=== PATIENT | female | born 1940 | race Caucasian/White ===

== ENCOUNTER 2020-11-02 17:17 | Inpatient (IN) | payer MEDICARE, OTHER ==
[~2020-11-02] VITALS: Ht 165.1 cm; Wt 59.9 kg
[2020-11-02] MEDS ORDERED: VANCOMYCIN IV 1,000 MG in IV DEXTROSE 5% 250 ML IV ONE (18:15)
[2020-11-02] MEDS ORDERED: IV NORMAL SALINE 1000 ML BAG IV ONE (18:15)
[2020-11-02] MEDS ORDERED: CEFTRIAXONE 1 G in IV DEXTROSE 5% 50 ML IV ONE (18:15)
[2020-11-02] MEDS ORDERED: ATOR20TA PO (18:24)
[2020-11-02] MEDS ORDERED: CEPH500C2 PO (18:24)
[2020-11-02] MEDS ORDERED: FOLI1TAB27 PO (18:24)
[2020-11-02] MEDS ORDERED: CALC-953 PO (18:24)
[2020-11-02] MEDS ORDERED: SULF1TAB48 PO (18:24)
[2020-11-02] MEDS ORDERED: CARV3.122 PO (18:24)
[2020-11-02] MEDS ORDERED: MULT-594 PO (18:24)
[2020-11-02] MEDS ORDERED: ACID1TAB12 PO (18:24)
[2020-11-02] MEDS ORDERED: ZINC57OI3 TP (18:24)
[2020-11-02] MEDS ORDERED: IBUP-1627 PO (18:24)
[2020-11-02 18:39] LABS: HEMATOCRIT 32.6 % (31.2-41.9); MEAN CORPUSCULAR HEMOGLOBIN 28.9 uug (24.7-32.8); MEAN CORPUSCULAR VOLUME 87.7 fL (75.5-95.3); PLATELET COUNT (AUTO) 369 K/uL (179-408)
[2020-11-02 18:45] LABS: CARBON DIOXIDE 30 mmol/L (21-32); CHLORIDE 103 mmol/L (98-107); CREATININE 0.8 mg/dL (0.6-1.3); GLUCOSE 110 mg/dL (74-106); POTASSIUM 4.3 mmol/L (3.5-5.1); UREA NITROGEN, BLOOD 35 mg/dL (7-18)
[2020-11-02 18:58] LABS: ALANINE AMINOTRANSFERASE 28 U/L (14-59); ALKALINE PHOSPHATASE 154 U/L (50-136); ASPARTATE AMINOTRANSFERASE 27 U/L (15-37); BILIRUBIN,DIRECT < 0.1 mg/dL (0.0-0.2); BILIRUBIN,TOTAL 0.1 mg/dL (0.2-1.0); TOTAL PROTEIN, SERUM 7.1 g/dL (6.4-8.2)
[2020-11-02] MEDS ORDERED: VANCOMYCIN IV 200 ML ONE (19:15)
[2020-11-02] MEDS ORDERED: CEFTRIAXONE /D5W 50ML IVPB **ER PYXIS IV ONE (19:16)
--- NOTE | 2020-11-02 19:23 | NUR ---
XRAY AT BEDSIDE.
[2020-11-02] MEDS ORDERED: LORAZEPAM 2 MG/1 ML VIAL IV ONE ×2 (19:30→21:30)
[2020-11-02] MEDS ORDERED: LORAZEPAM 2 MG/1 ML VIAL ONE ×2 (19:42→21:32)
--- NOTE | 2020-11-02 19:55 | NUR ---
PT BEING TAKEN DOWN FOR CT.
--- NOTE | 2020-11-02 20:10 | NUR ---
PT RETURNED FROM CT, STABLE CONDITION.
--- NOTE | 2020-11-02 20:42 | NUR ---
Called [facility] to page Ebenezer REEDER.
[2020-11-02] MEDS ORDERED: diphenhydrAMINE 50 MG/1 ML VIAL IV ONE (20:45)
--- NOTE | 2020-11-02 20:46 | NUR ---
Dr. Patton on panel call with Ebenezer REEDER.
[2020-11-02] MEDS ORDERED: diphenhydrAMINE 50 MG/1 ML VIAL ONE (20:56)
[2020-11-02] MEDS ORDERED: HYDROCODONE/APAP 5-325MG TABLET PO PRN (21:00)
[2020-11-02] MEDS ORDERED: MAGNESIUM HYDROXIDE 30 ML LIQUID UDC PO PRN (21:00)
[2020-11-02] MEDS ORDERED: ONDANSETRON 4 MG/2 ML VIAL IV PRN (21:00)
[2020-11-02] MEDS ORDERED: hydrALAZINE HCL 20 MG/1 ML VIAL IV PRN (21:00)
[2020-11-02] MEDS ORDERED: LORAZEPAM 2 MG/1 ML VIAL IV PRN (21:00)
[2020-11-02] MEDS ORDERED: MORPHINE SULFATE 2 MG/1 ML DISP.SYRIN IV PRN (21:00)
[2020-11-02] MEDS ORDERED: LABETALOL HCL 100 MG/20 ML VIAL IV PRN (21:00)
[2020-11-02] MEDS: ATORVASTATIN 20 MG TABLET PO SCH (21:50)
--- NOTE | 2020-11-02 21:55 | NUR ---
LIPITOR 40 MG TAKEN FROM [facility]XIS AND HALF ADMINISTERED TO PT FOR ORDER OF LIPITOR 20 MG. ADMINISTERED LIPITOR 20 MG PO, NO ASE NOTED.
[2020-11-02] MEDS ORDERED: ATORVASTATIN 40 MG TABLET ONE (21:59)
[2020-11-02] MEDS ORDERED: CEFEPIME HCL 1 G in IV DEXTROSE 5% 50 ML IV SCH (22:00)
--- NOTE | 2020-11-02 23:20 | NUR ---
Patient is resting comfortably in bed with eyes closed. Breathing is even and unnlabored. VSS.
[2020-11-03] MEDS ORDERED: LORAZEPAM 2 MG/1 ML VIAL IV ONE (00:30)
[2020-11-03] MEDS ORDERED: LORAZEPAM 2 MG/1 ML VIAL ONE (00:42)
--- NOTE | 2020-11-03 02:50 | NUR ---
Changed pt, now noted to be clean and dry. Turned and repositioned. Denies any pain/discomfort. VSS. Bed in lowesat position, resting comfortbly.
--- NOTE | 2020-11-03 04:26 | NUR ---
Pt noted to be in bed, resting, breathing even and unlabored, eyes closed. VSS. Bed in lowest position for safety precautions.
[2020-11-03 05:44] LABS: HEMATOCRIT 29.9 % (31.2-41.9); MEAN CORPUSCULAR HEMOGLOBIN 29.3 uug (24.7-32.8); MEAN CORPUSCULAR VOLUME 88.3 fL (75.5-95.3); PLATELET COUNT (AUTO) 290 K/uL (179-408)
[2020-11-03 05:55] LABS: BILIRUBIN,TOTAL 0.1 mg/dL (0.2-1.0); CREATININE 0.7 mg/dL (0.6-1.3); PHOSPHOROUS 2.7 mg/dL (2.5-4.9); POTASSIUM 3.7 mmol/L (3.5-5.1)
--- NOTE | 2020-11-03 06:39 | NUR ---
Patient is sleeping comfortably in bed. VSS. Breathing even and unlabored.
--- NOTE | 2020-11-03 08:00 | NUR ---
Assissted pt with break fast. pt had oatmeal/banana, eggs and juice.
[2020-11-03] MEDS: CEFEPIME HCL 1 G in IV DEXTROSE 5% 50 ML IV SCH ×2 (08:05→16:05)
[2020-11-03] MEDS ORDERED: CEFEPIME HCL 1 G VIAL ONE (08:06)
[2020-11-03] MEDS: CARVEDILOL 3.125 MG TABLET PO SCH ×2 (09:10→16:37)
[2020-11-03] MEDS ORDERED: CARVEDILOL 3.125 MG TABLET ONE (09:40)
[2020-11-03] MEDS ORDERED: TOBRAMYCIN 0.3% OPHT DROP 5 ML BOTTLE ONE (10:16)
--- NOTE | 2020-11-03 10:16 | NUR ---
Dr. Sol at bedside. Dr. Sol said that Dr. Andres will see the pt tomorrow for infection consult.
[2020-11-03] MEDS: TOBRAMYCIN/DEXAMETH OPHT DROP 2.5 ML BOTTLE EACHEYE SCH ×2 (10:40→12:30)
[2020-11-03] MEDS ORDERED: VENL75CA62 PO (11:49)
[2020-11-03] MEDS ORDERED: MOXI3DRO EACHEYE (11:49)
[2020-11-03] MEDS ORDERED: MUPI22OI2 TOP (11:49)
[2020-11-03] MEDS ORDERED: MULT-594 PO (11:49)
[2020-11-03] MEDS ORDERED: MIRT-93 PO (11:49)
[2020-11-03] MEDS ORDERED: PHEN100C4 PO (11:49)
[2020-11-03] MEDS ORDERED: METF-441 PO (11:49)
[2020-11-03] MEDS ORDERED: LOPE-195 PO (11:49)
[2020-11-03] MEDS ORDERED: RIVA10TA PO (11:49)
[2020-11-03] MEDS ORDERED: ACID1TAB12 PO (11:49)
[2020-11-03] MEDS ORDERED: SPIR25TA6 PO (11:49)
[2020-11-03] MEDS ORDERED: LEVO50TA8 PO (11:49)
[2020-11-03] MEDS ORDERED: NUT.237L30 PO (11:49)
--- NOTE | 2020-11-03 11:57 | NUR ---
pt daughter brought a comprehensive list of the pt home meds, added the new meds and talked to review the updated med recon.
[2020-11-03] MEDS ORDERED: DEXTROSE 50% 50 ML DISP.SYRIN IV PRN (12:15)
--- NOTE | 2020-11-03 12:19 | NUR ---
perineal hygiene provided. daughter at bedside to help with lunch
--- NOTE | 2020-11-03 12:25 | NUR ---
he=[id number]
[2020-11-03] MEDS: BLOOD SUGAR DIAGNOSTIC 1 EACH STRIP VI SCH ×2 (12:28→20:49)
--- NOTE | 2020-11-03 12:30 | NUR ---
pt daughter at bedside helping with feeding the pt, lunch tray. Addendum: 11/03/20 at 1336 by GUILHERME pt's daughter placed the upper denture for pt.
[2020-11-03] MEDS: MUPIROCIN 2% OINT 22 GM TUBE TP SCH ×2 (13:37→16:38)
[2020-11-03] MEDS ORDERED: MUPIROCIN 2% OINT 22 GM TUBE ONE (14:45)
--- NOTE | 2020-11-03 15:36 | NUR ---
transfered the pt to floor in stable condition. ptreamined calm and comfortable the whole er stay.
[2020-11-03 16:30] VITALS: BP 147/46
[2020-11-03 16:55] VITALS: BP 142/31
[2020-11-03] MEDS ORDERED: VITAMIN D3 PO SCH (17:00)
[2020-11-03] MEDS ORDERED: [UNRECOGNIZED DRUG - OTHER] PO SCH (17:00)
[2020-11-03] MEDS ORDERED: CALCIUM CARBONATE PO SCH (17:00)
[2020-11-03] MEDS: TOBRAMYCIN 0.3% OPHT DROP 5 ML BOTTLE EACHEYE SCH (17:48)
[2020-11-03] MEDS: ACIDOPHILUS/BULGARICUS CHEW TAB PO SCH (17:51)
[2020-11-03] MEDS: FOLIC ACID 1 MG TABLET PO SCH (17:51)
[2020-11-03] MEDS: RIVAROXABAN 10 MG TABLET PO SCH (17:52)
[2020-11-03] MEDS ORDERED: Medication Not On Formulary EA (Acidophilus/Bulgaricus (Floranex Tablet) 1 EACH) PO SCH (18:00)
--- NOTE | 2020-11-03 19:30 | NUR ---
RECEIVED PT AWAKE, ALERT AND ORIENTEDX3. PT IN NO ACUTE DISTRESS. IV INTACT. SAFETY AND COMFORT PROVIDED. WILL CONTINUE TO MONITOR.
[2020-11-03 20:40] VITALS: BP 136/67
[2020-11-03] MEDS: ACETAMINOPHEN 325 MG TABLET PO PRN (20:44)
[2020-11-03] MEDS: MIRTAZAPINE 15 MG TABLET PO SCH (20:44)
[2020-11-03] MEDS: PHENYTOIN SODIUM EXTENDED 100 MG CAPSULE.SA PO SCH (20:44)
[2020-11-03] MEDS: ATORVASTATIN 20 MG TABLET PO SCH (20:44)
[2020-11-03] MEDS: VANCOMYCIN IV 1,000 MG in IV DEXTROSE 5% 250 ML IV SCH (21:09)
[2020-11-04] MEDS: CEFEPIME HCL 1 G in IV DEXTROSE 5% 50 ML IV SCH ×4 (00:08→23:31)
[2020-11-04] MEDS: TOBRAMYCIN 0.3% OPHT DROP 5 ML BOTTLE EACHEYE SCH ×5 (00:08→23:37)
--- NOTE | 2020-11-04 01:00 | NUR ---
DAUGHTER OF THE PT CALLED TO TAKE OFF THE COMPRESSION SOCKS OF HER MOTHER AND SHE WANTS TO BE NOTIFY IF THE ID DOCTOR WILL COME AND SHE CAN TALK WITH THE DOCTOR. TOLD THE DAUGHTER WE WILL ENDORSE IT TO DAYSHIFT.
[2020-11-04 04:40] VITALS: BP 141/50
[2020-11-04] MEDS: LEVOTHYROXINE SODIUM 50 MCG TABLET PO SCH (06:05)
--- NOTE | 2020-11-04 06:20 | NUR ---
PT SLEPT INTERMITTENTLY. PT IN NO ACUTE DISTRESS. PRESCRIBED MEDICATION GIVEN AND PT TOLERATED IT WELL. IV INTACT. PT BLOOD SUGAR WAS 125 AND 99 . TYLENOL 650MG PRN GIVEN AT 2044H. SAFETY AND COMFORT PROVIDED. ALL NEEDS ARE MET. WILL ENDORSE TO INCOMING NURSE FOR CONTINUITY OF CARE.
[2020-11-04] MEDS: BLOOD SUGAR DIAGNOSTIC 1 EACH STRIP VI SCH ×4 (06:33→20:20)
--- NOTE | 2020-11-04 07:00 | NUR ---
Relay the message of the daughter to incoming nurse that she wants to talk to the primary doctor and infectious disease doctor regarding her mom.
[2020-11-04] MEDS: MULTIVITAMINS,THERAPEUTIC TABLET PO SCH (08:00)
[2020-11-04] MEDS: SPIRONOLACTONE 25 MG TABLET PO SCH (08:00)
[2020-11-04] MEDS: CALCIUM CARB/VITAMIN D 500MG-200UNITS TABLET PO SCH (08:00)
[2020-11-04] MEDS: CARVEDILOL 3.125 MG TABLET PO SCH ×2 (08:00→16:48)
[2020-11-04] MEDS: VENLAFAXINE XR 75 MG TAB.ER.24H PO SCH (08:00)
[2020-11-04] MEDS: MUPIROCIN 2% OINT 22 GM TUBE TP SCH ×3 (08:01→17:00)
[2020-11-04] MEDS ORDERED: Medication Not On Formulary EA (Multivitamins (Multivitamin) 1 EACH) PO SCH (09:00)
[2020-11-04 11:18] VITALS: BP 136/54
[2020-11-04 15:07] VITALS: BP 120/57
[2020-11-04] MEDS: FOLIC ACID 1 MG TABLET PO SCH (17:32)
[2020-11-04] MEDS: ACIDOPHILUS/BULGARICUS CHEW TAB PO SCH (17:32)
[2020-11-04] MEDS: RIVAROXABAN 10 MG TABLET PO SCH (17:49)
[2020-11-04] MEDS: ATORVASTATIN 20 MG TABLET PO SCH (20:11)
[2020-11-04] MEDS: MIRTAZAPINE 15 MG TABLET PO SCH (20:11)
[2020-11-04] MEDS: PHENYTOIN SODIUM EXTENDED 100 MG CAPSULE.SA PO SCH (20:11)
[2020-11-04 20:18] VITALS: BP 132/48
[2020-11-04] MEDS: INSULIN REGULAR, HUMAN 300 UNIT/3 ML VIAL SQ PRN (20:35)
[2020-11-04] MEDS: ACETAMINOPHEN 325 MG TABLET PO PRN (20:35)
[2020-11-04] MEDS: VANCOMYCIN IV 1,000 MG in IV DEXTROSE 5% 250 ML IV SCH (23:35)
[2020-11-05 04:21] VITALS: BP 103/43
[2020-11-05] MEDS: TOBRAMYCIN 0.3% OPHT DROP 5 ML BOTTLE EACHEYE SCH ×4 (05:25→23:50)
[2020-11-05] MEDS: LEVOTHYROXINE SODIUM 50 MCG TABLET PO SCH (06:31)
[2020-11-05] MEDS: BLOOD SUGAR DIAGNOSTIC 1 EACH STRIP VI SCH ×4 (06:31→20:43)
[2020-11-05 06:34] LABS: HEMATOCRIT 29.2 % (31.2-41.9); MEAN CORPUSCULAR HEMOGLOBIN 28.7 uug (24.7-32.8); MEAN CORPUSCULAR VOLUME 87.5 fL (75.5-95.3); PLATELET COUNT (AUTO) 281 K/uL (179-408)
[2020-11-05 06:57] LABS: CREATININE 0.6 mg/dL (0.6-1.3); PHOSPHOROUS 3.4 mg/dL (2.5-4.9); POTASSIUM 3.7 mmol/L (3.5-5.1)
--- NOTE | 2020-11-05 07:30 | NUR ---
Awake, alert, oriented x 3, on moderate high back rest. [place] orbital area with redness. Denies pain
[2020-11-05] MEDS: MULTIVITAMINS,THERAPEUTIC TABLET PO SCH (09:30)
[2020-11-05] MEDS: CALCIUM CARB/VITAMIN D 500MG-200UNITS TABLET PO SCH (09:30)
[2020-11-05] MEDS: CEFEPIME HCL 1 G in IV DEXTROSE 5% 50 ML IV SCH ×3 (09:30→23:50)
[2020-11-05] MEDS: VENLAFAXINE XR 75 MG TAB.ER.24H PO SCH (09:30)
[2020-11-05] MEDS: SPIRONOLACTONE 25 MG TABLET PO SCH (09:30)
[2020-11-05] MEDS: CARVEDILOL 3.125 MG TABLET PO SCH ×2 (09:37→17:32)
[2020-11-05] MEDS: MUPIROCIN 2% OINT 22 GM TUBE TP SCH ×3 (09:38→17:33)
[2020-11-05 11:53] VITALS: BP 142/48
[2020-11-05] MEDS: INSULIN REGULAR, HUMAN 300 UNIT/3 ML VIAL SQ PRN ×2 (12:58→20:46)
--- NOTE | 2020-11-05 13:25 | NUR ---
Right arm wound, seen and examined by PARRISH Merritt. Wound care done as ordered, dressing clean and dry
--- NOTE | 2020-11-05 14:06 | NUR ---
WOUND CARE CONSULT: PT SEEN FOR RT ARM CLOSED SKIN TEAR WITH SLIGHT REDNESS TO PERIWOUND AREA, PRESENT ON ADMISSION. CONCUR WITH CURRENT WOUND TREATMENT. ORDERS CLARIFIED WITH NURSING STAFF. MD IN AGREEMENT WITH PLAN OF CARE.
[2020-11-05 15:59] VITALS: BP 129/63
[2020-11-05] MEDS: FOLIC ACID 1 MG TABLET PO SCH (17:33)
[2020-11-05] MEDS: ACIDOPHILUS/BULGARICUS CHEW TAB PO SCH (17:33)
[2020-11-05] MEDS: RIVAROXABAN 10 MG TABLET PO SCH (17:43)
--- NOTE | 2020-11-05 18:31 | NUR ---
Pt awake, alert, and oriented x3. Resting comfortably. No acute distress noted. All evening meds administered and tolerated well. BS of 82. Wound culture of right forearm collected, wound care provided. No c/o pain. Safety and comfort measures provided. All needs met. Will endorse to oncoming nurse for continuity of care.
[2020-11-05 20:00] VITALS: BP 122/45
[2020-11-05] MEDS: MIRTAZAPINE 15 MG TABLET PO SCH (20:40)
[2020-11-05] MEDS: PHENYTOIN SODIUM EXTENDED 100 MG CAPSULE.SA PO SCH (20:40)
[2020-11-05] MEDS: ATORVASTATIN 20 MG TABLET PO SCH (20:40)
[2020-11-06] MEDS: VANCOMYCIN IV 1,000 MG in IV DEXTROSE 5% 250 ML IV SCH (01:29)
[2020-11-06 03:48] VITALS: BP 105/73
[2020-11-06] MEDS: LEVOTHYROXINE SODIUM 50 MCG TABLET PO SCH (05:52)
[2020-11-06] MEDS: TOBRAMYCIN 0.3% OPHT DROP 5 ML BOTTLE EACHEYE SCH ×3 (05:53→17:00)
[2020-11-06 06:08] LABS: HEMATOCRIT 28.1 % (31.2-41.9); MEAN CORPUSCULAR HEMOGLOBIN 29.1 uug (24.7-32.8); MEAN CORPUSCULAR VOLUME 88.1 fL (75.5-95.3); PLATELET COUNT (AUTO) 276 K/uL (179-408)
--- NOTE | 2020-11-06 06:28 | NUR ---
Shift End Report: Continue on ATB IV therapy without s/s of adverse reaction noted. Bilateral periorbital swelling reduced in size with visible redness still. No complaint of pain. Slept good after Ativan was given as ordered and needed. All needs attended and met. Continue care as planned.
[2020-11-06 06:33] LABS: THYROID STIMULATING HORMONE 1.432 mIU/mL (0.358-3.740)
[2020-11-06 06:51] LABS: BILIRUBIN,TOTAL 0.2 mg/dL (0.2-1.0); CREATININE 0.7 mg/dL (0.6-1.3); PHOSPHOROUS 3.1 mg/dL (2.5-4.9); TOTAL PROTEIN, SERUM 5.6 g/dL (6.4-8.2)
--- NOTE | 2020-11-06 08:30 | NUR ---
awake alert and oriented, speaks in a soft voice, minimal assistance with meal- ate good, right forearm cellulitis less red and scab intact, treatment done
[2020-11-06] MEDS: CEFEPIME HCL 1 G in IV DEXTROSE 5% 50 ML IV SCH ×2 (08:47→16:19)
[2020-11-06] MEDS ORDERED: GLUCERNA SHAKE VANILLA 237 ML CAN PO SCH (09:00)
[2020-11-06] MEDS: CARVEDILOL 3.125 MG TABLET PO SCH ×2 (10:01→17:02)
[2020-11-06] MEDS: CALCIUM CARB/VITAMIN D 500MG-200UNITS TABLET PO SCH (10:01)
[2020-11-06] MEDS: MULTIVITAMINS,THERAPEUTIC TABLET PO SCH (10:01)
[2020-11-06] MEDS: VENLAFAXINE XR 75 MG TAB.ER.24H PO SCH (10:02)
[2020-11-06] MEDS: SPIRONOLACTONE 25 MG TABLET PO SCH (10:02)
[2020-11-06] MEDS: MUPIROCIN 2% OINT 22 GM TUBE TP SCH ×3 (10:03→17:00)
[2020-11-06 11:16] VITALS: BP 102/45
[2020-11-06] MEDS ORDERED: LEVO500T90 PO (12:13)
--- NOTE | 2020-11-06 12:30 | NUR ---
daughter here visiting, updated re pt- for discharge, would like to talk to CM- informed CM and spoke to her
[2020-11-06 15:54] VITALS: BP 129/44
[2020-11-06] MEDS: ACIDOPHILUS/BULGARICUS CHEW TAB PO SCH (17:01)
[2020-11-06] MEDS: FOLIC ACID 1 MG TABLET PO SCH (17:01)
[2020-11-06] MEDS: RIVAROXABAN 10 MG TABLET PO SCH (17:01)
--- NOTE | 2020-11-06 17:30 | NUR ---
awaiting for ambulance, no distress noted, saline lock removed on left forearm, no redness noted on site
--- NOTE | 2020-11-06 18:00 | NUR ---
called [facility] ambulance- will be here in 30 minutes- pt informed
[2020-11-06 19:25] VITALS: BP 146/53
[2020-11-06] MEDS ORDERED: VANCOMYCIN IV 1,000 MG in IV DEXTROSE 5% 250 ML IV SCH (23:00)
== END 2020-11-06 19:30 | disposition home health service (06) | DRG 602 ==
LOC: ER 17:31 → TRANSITION 21:34 → MEDSURG3 11-03 15:25
PROVIDERS: ADMIT Internal Medicine; ATTEND Internal Medicine
DX: L03.213 Periorbital cellulitis (principal); E43 Unspecified severe protein-calorie malnutrition; L03.113 Cellulitis of right upper limb; I42.9 Cardiomyopathy, unspecified; D68.59 Other primary thrombophilia; D64.9 Anemia, unspecified; I25.10 Atherosclerotic heart disease of native coronary artery without angina pectoris; Z87.820 Personal history of traumatic brain injury; Z95.5 Presence of coronary angioplasty implant and graft; E78.5 Hyperlipidemia, unspecified; Z74.09 Other reduced mobility; Z20.822 Contact with and (suspected) exposure to COVID-19; I10 Essential (primary) hypertension; Z68.22 Body mass index [BMI] 22.0-22.9, adult; S41.111A Laceration without foreign body of right upper arm, initial encounter; X58.XXXA Exposure to other specified factors, initial encounter; Y93.9 Activity, unspecified; Y92.89 Other specified places as the place of occurrence of the external cause; E11.9 Type 2 diabetes mellitus without complications; Z88.0 Allergy status to penicillin; H10.9 Unspecified conjunctivitis; F32.9 Major depressive disorder, single episode, unspecified; G31.84 Mild cognitive impairment of uncertain or unknown etiology
CPT/HCPCS: 36415; 70030-TC; 70480; 71045; 83550; 83605; 83735; 84100; 84443; 85025; 85651; 85730; 86140; 87040; 87070; 93005; 97161; A4663; G0378; J0692; J0696; J1200; J1815; J2060; J2270; J3370; J3490; J7030; J7050; J7060